=== PATIENT | male | born 1960 | race Asian ===

== ENCOUNTER 2022-11-30 06:02 | Emergency (ER) | payer OTHER, SELFPAY ==
--- NOTE | ~2022-11-30 | CT_ITS ---
EXAMINATION: CT OF THE CERVICAL SPINE WITHOUT CONTRAST CLINICAL INFORMATION: Neck pain.. COMPARISON: None. TECHNIQUE: Contiguous axial imaging was then performed from the skull base down to the thoracic inlet. Coronal and sagittal reformations of the cervical spine were obtained. This CT examination was performed using dose optimization techniques as appropriate, variously including the following: *Automated exposure control *Adjustment of mA and/or kV according to patient size (this includes techniques or standardized protocols for targeted exams where dose is matched to indication/reason for exam; i.e. extremities or head) *Use of iterative reconstruction technique DLP: 455 mGy-cm. FINDINGS: There is a reversal of the normal cervical lordosis with mild cervical kyphosis seen, centered at the C5-C6 level. This finding may be positional. The alignment is otherwise normal with no evidence of acute fracture or dislocation. Craniocervical junction and atlantoaxial articulations are intact with mild hypertrophic changes noted. Prevertebral soft tissues are normal in thickness. There is moderate degenerative disc disease at C5-C6 with disc space narrowing, vertebral endplate sclerosis, spurring, and cystic changes. Small posterior and anterior disc osteophyte complexes are seen at this level with minimal indentation of the thecal sac. Mild degenerative disc disease is seen at C6-C7 with disc space narrowing and mild spurring seen. Remainder of disc space height relatively well-maintained. No acute fracture noted. Ossification in the posterior ligamentum note at the level of C4-C6 is seen. Minimal mucosal thickening is seen in the ethmoid and maxillary sinuses. There are irregular reticular nodular opacities seen in the lung apices bilaterally, right greater than left with associated punctate calcific densities in the right lung apex. These findings are incompletely included but presumably are due to fibrocalcific scarring. The included soft tissues of the neck and lung apices are otherwise unremarkable. CT/CT cervical spine wo IV con IMPRESSION: 1. No evidence of cervical spine fracture or acute malalignment. 2. Moderate degenerative disc disease at C5-C6 and mild degenerative disc disease at C6-C7. 3. There are irregular reticular nodular opacities seen in the lung apices bilaterally, right greater than left with associated punctate calcific densities in the right lung apex, presumably representing fibrocalcific scarring. Close clinical correlation is requested. This process is incompletely included and if clinically warranted, dedicated chest CT scan could be performed for further clarification of findings..
[2022-11-30 06:18] VITALS: BP 136/69; PULSE 74; RESP 18; TEMP 36.8; O2SAT 98; BMI 23.6
[2022-11-30 06:41] VITALS: BP 120/73; PULSE 65; RESP 17; TEMP 36.8; O2SAT 97
--- NOTE | 2022-11-30 06:57 | PC.NURSE ---
pt a&o, no sob or chest pain, pt neuro re intact, pt ambulating with a steady gait. No sign of distress. pt awaiting to be seen by provider.
--- NOTE | 2022-11-30 07:25 | ED.EXTPRO ---
HPI - Extremity Problem General Chief complaint: Extremity Injury, Upper Stated complaint: shoulder pain Time Seen by Provider: 11/30/22 07:04 Source: patient and family Mode of arrival: ambulatory Limitations: no limitations History of Present Illness HPI Narrative: 61 yo male with no PMH here with c/o L sided neck pain now making L arm feel tingly and weird but no weakness worsening x 1 month possibly related to soccer injury. Made worse due to recent flight from [place]. He had xrays in [place] ?degenerative disc disease tried some aleve but could not get comfortable. Pain is wosre with movements. He denies systemic symptoms. MD Complaint: other (neck pain) Onset (ago): month(s) (1) Pain Consistency: intermittent Location: left and upper extremity Quality: aching, dull and constant Radiation: distal Relieving factors: immobilization Exacerbating factors: range of motion and palpation Associated symptoms: denies other symptoms Context: other (possible soccer injury) Related Data Previous Rx's Medication Instructions Recorded diazepam 5 mg tablet (Valium) 5 mg PO TID PRN muscle spasm #10 11/30/22 tabs lidocaine 5 % topical patch 1 patch topical DAILY #30 ea 11/30/22 prednisone 20 mg tablet 40 mg (2 x 20 mg) PO DAILY 4 days 11/30/22 #8 tabs Allergies Allergy/AdvReac Type Severity Reaction Status Date / Time No Known Allergies Allergy Verified 11/30/22 06:17 Review of Systems Review of Systems: Constitutional : No Fever, No Chills ENT/Mouth : No Ear Pain, No Hoarseness, No sore throat Eyes: No Eye Pain, No Swelling, No Redness, No Foreign Body Cardiovascular : No Chest Pain, No SOB Respiratory : No Cough, No Dyspnea Gastrointestinal : No Nausea, No Vomiting, No Diarrhea, No abdominal Pain Genitourinary : No Dysuria, No Hematuria Musculoskeletal : positive joint pain, No Myalgias, No Joint Swelling, pos neck Skin : No Skin lacerations, No rash Neuro : No Weakness, pos Numbness, No Loss of Consciousness, No Dizziness, No Headache All other systems reviewed and are negative [facility] Past Medical History Attestation statement: The following information was validated with the patient. Medical History Neck pain Social History Social History Patient Tobacco Use Status: Never used Tobacco Smoked in Last 30 Days: No Advance Directives: No Advance Directives Information Provided: Yes Physical Exam Vital Signs: Vital Signs: Last Vital Signs Temp 98.1 F 11/30/22 08:00 Pulse 68 11/30/22 08:00 Resp 18 11/30/22 08:00 BP 128/71 11/30/22 08:00 Pulse Ox 98 11/30/22 08:00 O2 Del Method Room Air 11/30/22 08:00 BMI result Body Mass Index 23.6 Appearance: Alert. Oriented X3. No acute distress. Eyes: Pupils equal, round and reactive to light. ENT: Pharynx normal. Neck: neg spurlings maneuver has ttp along L trapezius with ttp reproducing pain but no radicular symptoms. no mass felt. left lateral C5-C6 ttp CVS: Normal heart rate and rhythm. Pulses normal. Respiratory: No respiratory distress. Breath sounds normal. Abdomen: Soft and nontender. Skin: Skin warm and dry. Normal skin color. Normal skin turgor. Extremities: No lower extremity edema. No calf ttp Neuro: Oriented X 3. No motor deficit. No sensory deficit. bilateral UE 5/5 with SILT intact Medications Administered Discontinued Medications Generic Name Dose Route Start Last Admin Trade Name Dania PRN Reason Stop Dose Admin Diazepam 2 mg 11/30/22 07:18 11/30/22 07:47 Diazepam 2 Mg Tablet PO 11/30/22 07:19 2 mg ONCE ONE Administration Lidocaine 1 patch 11/30/22 07:18 11/30/22 07:47 Lidocaine 4 % Patch Adh..Patch TRANSDERMA 11/30/22 07:19 1 patch ONCE ONE Administration Protocol Prednisone 40 mg 11/30/22 07:18 11/30/22 07:47 Prednisone 20 Mg Tablet PO 11/30/22 07:19 40 mg ONCE ONE Administration Medical Decision Making Medical Decision Making MDM Narrative: 61 yo male with no PMH here with L sided neck pain with radicular symptoms but UE is motor and sensation intact - he is not toxic no blood thinners no fevers no red flag and no neuro deficits. He will get CT scan for any bony destruction or lesion. PO steroids, valium and lidocaine patches. He has normal neuro exam no MRI needed at this time. Differential Diagnosis Differential Diagnoses: The differential diagnosis associated with the presentation includes spasm, ddd, cervical strain, cervical radiculopathy Admission/Observation Consideration of admission/observation: Escalation of care including admission/observation considered Independent Interpretation I performed an independent interpretation of an: CT Scan (disc disease) Radiology Impression Discussion of test interpretation with radiology: I have reviewed the radiologist's reading. Independent Historian Clinical information obtained from an independent historian. History obtained from or confirmed by: Spouse External Record Review External record reviewed: Outpatient record Tests considered The following testing was considered but not selected: MRI - neurologically intact not indicated Prescription Management I considered prescription management with: Pain Medication and Other Discharge Plan Discharge Clinical Impression: Degenerative disc disease, cervical, Cervical radiculopathy Patient Disposition: Home, Self-Care Instructions: Cervical Radiculopathy (ED), Degenerative Disc Disease (ED) Additional Instructions: 1. No evidence of cervical spine fracture or acute malalignment. 2. Moderate degenerative disc disease at C5-C6 and mild degenerative disc disease at C6-C7. 3. There are irregular reticular nodular opacities seen in the lung apices bilaterally, right greater than left with associated punctate calcific densities in the right lung apex, presumably representing fibrocalcific scarring. Close clinical correlation is requested. This process is incompletely included and if clinically warranted, dedicated chest CT scan could be performed for further clarification of findings.. LIKELY O[employer] SCARRING BUT WOULD GET CT SCAN WITH PRIMARY CARE DOCTOR IN NEXT 3 MONTHS return for worsening pain, numbness, weakness of hand or any other concerns. Prescriptions: New prednisone 20 mg tablet 40 mg PO DAILY 4 Days Qty: 8 0RF lidocaine 5 % adhesive patch,medicated 1 patch topical DAILY Qty: 30 0RF Rx Instructions: leave on most painful area for up to 12 hrs diazepam [Valium] 5 mg tablet 5 mg PO TID PRN (Reason: muscle spasm) Qty: 10 0RF Rx Instructions: partial fill is okay
[2022-11-30] MEDS: diazePAM 2 MG TABLET PO (07:47)
[2022-11-30] MEDS: predniSONE 20 MG TABLET 40 MG PO (07:47)
[2022-11-30] MEDS: Lidocaine 4 % Patch ADH..PATCH 1 PATCH TRANSDERMA (07:47)
--- NOTE | 2022-11-30 07:50 | PC.NURSE ---
Pt to [facility] with complaints of neck pain and pins/needles sensation in BUE. Pt reports that this has been an ongoing issue. Recently returned from trip abroad and symptoms have worsened. Pt medicated per MAY, lidocaine patch applied to left posterior neck. Awaiting CT scan. WCTA
[2022-11-30 08:00] VITALS: BP 128/71; PULSE 68; RESP 18; TEMP 36.7; O2SAT 98
== END 2022-11-30 10:03 | disposition home or self-care (01) ==
PROVIDERS: Emergency Provider Emergency Medicine
DX: M50.122 Cervical disc disorder at C5-C6 level with radiculopathy (principal); M50.123 Cervical disc disorder at C6-C7 level with radiculopathy
CPT/HCPCS: 72125; 99284